=== PATIENT | female | born 1970 | race Caucasian/White ===

== ENCOUNTER 2021-09-02 06:15 | Day surgery (SDC) | payer OTHER ==
[2021-08-28 11:22] VITALS: BMI 23.3
[2021-09-02] MEDS ORDERED: LIDOCAINE HCL 1%, 10 MG/ML (20ML VIAL) ONE (06:59)
[2021-09-02] MEDS ORDERED: SUCCINYLCHOLINE CHLORIDE 200 MG/10 ML SYRINGE ONE (07:07)
[2021-09-02] MEDS ORDERED: LIDOCAINE HCL/PF 2% SDV 5ML VIAL ONE (07:07)
[2021-09-02] MEDS ORDERED: DEXAMETHASONE SOD PHOSPHATE 4 MG/1 ML VIAL ONE (07:07)
[2021-09-02] MEDS ORDERED: MIDAZOLAM HCL 2 MG/2 ML SINGLE DOSE VIAL ONE (07:08)
[2021-09-02] MEDS ORDERED: KETOROLAC TROMETHAMINE 30 MG/1 ML VIAL ONE (07:09)
[2021-09-02] MEDS ORDERED: PROPOFOL 20 ML ONE ×2 (07:09)
[2021-09-02] MEDS ORDERED: LIDOCAINE HCL 2% (20ML MULTI-DOSE VIAL) ONE (07:23)
[2021-09-02] MEDS ORDERED: oxyCODONE HCL 5 MG TABLET PO PRN ×2 (07:41)
[2021-09-02] MEDS ORDERED: ONDANSETRON 4 MG/2 ML VIAL IVPUSH PRN (07:41)
[2021-09-02] MEDS ORDERED: LACTATED RINGERS SOLUTION 1,000 ML IV SCH (07:45)
[2021-09-02] MEDS ORDERED: ceFAZolin SODIUM 1 GM VIAL ONE (07:50)
[2021-09-02 16:18] VITALS: TEMP 97.8
[2021-09-02 16:36] VITALS: BP 95/58; PULSE 64; RESP 17
== END 2021-09-02 09:10 | disposition home or self-care (01) ==
LOC: FASU 06:15
PROVIDERS: ATTEND Orthopaedic Surgery Hand Surgery
PROC: 0RBX0ZZ Excision of Left Finger Phalangeal Joint, Open Approach (ICD-10-PCS; 2021-09-02)
PROC: 0RBX0ZZ Excision of Left Finger Phalangeal Joint, Open Approach (ICD-10-PCS; principal; 2021-09-02 08:01)
DX: D21.12 Benign neoplasm of connective and other soft tissue of left upper limb, including shoulder (principal); M19.042 Primary osteoarthritis, left hand; M65.842 Other synovitis and tenosynovitis, left hand
CPT/HCPCS: 88305-TC